=== PATIENT | male | born 1975 | race Caucasian/White ===

== ENCOUNTER 2017-11-12 09:11 | Day surgery (SDC) | payer MEDICAID ==
[~2017-11-12 09:11] MED LIST: Bupivacaine 0.5% 50 ML MDV ONE; Lidocaine 1% with EPINEPHrine 1:100,000 50 ML MDV ONE
[2017-11-12] MEDS ORDERED: Ondansetron 4 MG/2 ML SDV ONE (09:40)
[2017-11-12] MEDS ORDERED: Rocuronium 50 MG/5 ML Vial ONE (09:40)
[2017-11-12] MEDS ORDERED: Succinylcholine 200 MG/10 ML MDV ONE (09:40)
[2017-11-12] MEDS ORDERED: Neostigmine Methylsulfate 1 MG/ML 5 ML Syringe ONE (09:40)
[2017-11-12] MEDS ORDERED: Dexamethasone 4 MG/ML SDV ONE (09:40)
[2017-11-12] MEDS ORDERED: Propofol 200 MG/20 ML SDV ONE (09:40)
[2017-11-12] MEDS ORDERED: Glycopyrrolate 0.2 MG/ML 5 ML MDV ONE (09:40)
[2017-11-12] MEDS ORDERED: Sodium Chloride 0.9% 1,000 ML IV SCH (09:45)
[2017-11-12] MEDS ORDERED: fentaNYL 250 MCG/5 ML SDV ONE ×2 (09:52→10:20)
[2017-11-12] MEDS ORDERED: Ketorolac 60 MG/2 ML SDV ONE (10:45)
[2017-11-12] MEDS ORDERED: metroNIDAZOLE/Normal Saline 500 MG in Premix Bag 1 BAG IV ONE (10:45)
[2017-11-12] MEDS ORDERED: Sugammadex Sodium 200 MG/2 ML VIAL ONE (10:57)
[2017-11-12] MEDS ORDERED: Ropivacaine 30 ML, Dexamethasone 8 MG, EPINEPHrine 0.4 MG, Sodium Chloride 0.9% 47.6 ML NERVRT ONE ×4 (11:00)
[2017-11-12] MEDS ORDERED: ceFAZolin 2 GM in Premix Bag 1 BAG IV ONE (11:00)
[2017-11-12] MEDS ORDERED: hydrOXYzine HCl 100 MG/2 ML SDV IM ONE (11:27)
--- NOTE | 2017-11-12 15:17 | OR ---
DATE OF PROCEDURE: 11/12/2017 PROCEDURE: Laparoscopic total extraperitoneal hernia repair, left. COMPLICATIONS: None. PROGRAM DIRECTOR GROUP WORK: None. ANESTHESIA: General/TAP. RISKS: Risks, benefits, alternatives, and limitations including, but not limited to infection, bleeding, injury to abdominal structures, testicular injury, chronic wounds, and other risks not listed here. PREOPERATIVE DIAGNOSIS: Indirect inguinal hernia. POSTOPERATIVE DIAGNOSIS: Indirect inguinal hernia. PROCEDURE IN DETAIL: The patient was placed in supine position. An infraumbilical incision was made. This was approximately 10 mm in size. This was carried down with electrocautery, and the external oblique aponeurosis was opened. The rectus muscles were and a Pean was used to create a potential space. The balloon was then introduced and dilated to approximately 30 pumps. After this, the preperitoneal space was insufflated without difficulty. The left inguinal hernia was identified laparoscopically. A [id number]-bc-[id number] dissection was then commenced with gentle traction of the hernia, reflecting it appropriately. There was no pantaloon hernia. Careful attention was made to stay out of the "triangle of doom," and the "triangle of pain." Once a complete [id number]-[id number]-[id number] dissection up to the pubic symphysis, the mesh was cut and then inserted. This was an overlap of approximately 1 to 2 cm on the pubic symphysis, but completely centered on the hernia itself. This was unfolded without difficulty. This was then inspected for any bleeding, which none was noted, as dissection was commenced only in the avascular planes. The air was desufflated. The fascia was approximated with 0 Vicryl. The skin was closed with 3-0 Vicryl, 4-0 Vicryl, and Dermabond. The patient tolerated the procedure well. Nicholas Lares MD /[id number]
== END 2017-11-12 13:13 | disposition home or self-care (01) ==
LOC: JP.SDS 09:11
PROVIDERS: ATTEND Surgery
DX: K40.90 Unilateral inguinal hernia, without obstruction or gangrene, not specified as recurrent (principal); F17.210 Nicotine dependence, cigarettes, uncomplicated; M47.897 Other spondylosis, lumbosacral region; M46.1 Sacroiliitis, not elsewhere classified
CPT/HCPCS: C1781; C9399; J0171; J0330; J0690; J1100; J1885; J2405; J2704; J2710; J2795; J3010; J3410; J7040; J7050

== ENCOUNTER 2020-05-11 09:12 | Day surgery (SDC) | payer MEDICAID ==
[~2020-05-11 09:12] MED LIST changes: +Bupivacaine 0.5%/EPINEPHrine 1:200,000 50 ML MDV ONE; +Ropivacaine 32 ML, dexAMETHasone 8 MG, EPINEPHrine 0.4 MG, Sodium Chloride 0.9% 45.6 ML NERVRT SCH; +Sodium Chloride 0.9% 1,000 ML IV SCH; +ceFAZolin 2 GM in Premix Bag 1 BAG IV ONE; +metroNIDAZOLE/Normal Saline 500 MG in Premix Bag 1 BAG IV ONE
[2020-05-11] MEDS ORDERED: Midazolam 1 MG/ML 2 ML SDV ONE (09:34)
[2020-05-11] MEDS ORDERED: fentaNYL 100 MCG/2 ML SDV ONE (09:34)
[2020-05-11] MEDS ORDERED: Propofol 200 MG/20 ML SDV ONE ×4 (09:34→11:29)
[2020-05-11] MEDS ORDERED: Sodium Chloride 0.9% 1,000 ML IV SCH (09:45)
[2020-05-11] MEDS ORDERED: ceFAZolin 2 GM in Premix Bag 1 BAG IV ONE (10:30)
[2020-05-11] MEDS ORDERED: metroNIDAZOLE/Normal Saline 500 MG in Premix Bag 1 BAG IV ONE (10:30)
[2020-05-11] MEDS ORDERED: Ropivacaine 32 ML, dexAMETHasone 8 MG, EPINEPHrine 0.4 MG, Sodium Chloride 0.9% 45.6 ML NERVRT SCH ×4 (11:00)
[2020-05-11] MEDS ORDERED: Ketorolac 60 MG/2 ML SDV ONE (11:13)
[2020-05-11] MEDS ORDERED: Acetaminophen/HYDROcodone 325-5 MG Tab PO ONE (12:52)
--- NOTE | 2020-05-11 14:53 | OR ---
DATE OF PROCEDURE: 05/11/2020 SURGEON: Nicholas Lares MD PROCEDURE: Repair, left inguinal hernia, recurrent, open. COMPLICATION: None. HR MANAGER: None. ANESTHESIA: MAC. RISKS: Risks, benefits, alternatives, and limitations including, but not limited to, infection, bleeding, recurrence, chronic pain problems, and other risks not listed here were explained to the patient, who wished to proceed. PROCEDURE IN DETAIL: The patient was placed in supine position and a curvilinear incision in the classic fashion was created. This was after anesthetized with lidocaine. A 15 blade was used to create an incision, and then blunt dissection was used to dissect down. The indirect inguinal hernia was identified medially and noted to have incarcerated small bowel. This was from the cord structures which were surrounded with a Rupa drain. These were placed back in the abdomen. An extra-large plug and patch system was then utilized. This was sewed in with interrupted Vicryl sutures approximately every 5 mm to 1 cm. The plug was sutured, the patch was sutured in proximity to the pubic symphysis and then a stitch in a standard fashion. The wounds were closed with 3-0 Vicryl and 4-0 Vicryl interrupted running fashion. The patient tolerated the procedure well. The skin was closed with Dermabond. Nicholas Lares MD /[id number]
== END 2020-05-11 13:50 | disposition home or self-care (01) ==
LOC: JP.SDS 09:12
PROVIDERS: ATTEND Surgery
DX: K40.30 Unilateral inguinal hernia, with obstruction, without gangrene, not specified as recurrent (principal); J44.9 Chronic obstructive pulmonary disease, unspecified
CPT/HCPCS: 49521; A9270; C1781; J0171; J0690; J1100; J1885; J2250; J2704; J2795; J3010; J3490; J7030; J7050